=== PATIENT | male | born 1990 | race Caucasian/White ===

== ENCOUNTER 2020-06-04 17:51 | Emergency (ER) | payer BC ==
[~2020-06-04] VITALS: Ht 190.5 cm; Wt 88.5 kg
[2020-06-04] MEDS ORDERED: PREDNISONE20 M1 PO (20:27)
== END 2020-06-04 20:30 | disposition home or self-care (01) ==
LOC: ED 17:51
DX: T63.441A Toxic effect of venom of bees, accidental (unintentional), initial encounter (principal); Y92.89 Other specified places as the place of occurrence of the external cause